=== PATIENT | male | born 1955 | race Caucasian/White ===

== ENCOUNTER 2019-10-11 07:42 | Outpatient (CLI) | payer OTHER, SELFPAY ==
--- NOTE | 2019-10-11 | ECHO_ITS ---
Patient Info Name: Donavan Gutierrez Age: 64 years : 1955 Gender: Male Ht: 71 in Wt: 197 lbs BSA: 2.13 m2 HR: 56 bpm BP: 151 / 89 mmHg Heart Rhythm: Bradycardia Technical Quality: Good Exam Date: 10/11/2019 8:15 AM Exam Location: [facility] Patient Status: Outpatient Admit Date: 10/11/2019 Staff Ordering Physician: JaeMariano MD Back Gray Cloth Washer: Paty Gutiérrez RDCS Attending Provider: TerriMariano MD Exam Type: CA echo doppler color flow Study Info Indications R00.2 - Palpitations Complete two-dimensional, color flow and Doppler transthoracic echocardiogram is performed. History/Risk Factors Palpitations. Summary 1. Normal LV size and wall thickness, normal LV systolic and diastolic function. LVEF about 65%. Trivial MR, no hemodynamically significant aortic stenosis. Trivial TR, RVSP 26 mmHg. Left Ventricle Left ventricular chamber dimension is normal. Left ventricular systolic function is normal, estimated at 60-65%. There is no increased left ventricular wall thickness. Left ventricular septal wall motion is normal. The left ventricular diastolic function is normal. Right Ventricle Right ventricular chamber dimension is normal. Right ventricular systolic function is normal. Left Atria Left atrial chamber dimension is normal. Right Atria Right atrial chamber dimension is normal. Aortic Valve The aortic valve is trileaflet. There is no aortic valve sclerosis. There is no aortic valve stenosis. There is no aortic valve regurgitation. Pulmonic Valve The pulmonic valve is not well visualized. There is no pulmonic regurgitation. Mitral Valve The mitral valve has normal leaflets. There is no mitral valve stenosis. There is trace mitral valve regurgitation. Tricuspid Valve There is no significant tricuspid valve stenosis. There is trace tricuspid valve regurgitation. No pulmonary hypertension, estimated pulmonary arterial systolic pressure is 26 mmHg. Pericardium/Pleural The pericardium appears epicardial fat pad. There is no pericardial effusion. Aorta The aortic root size at the sinus of Valsalva is normal. The prox ascending aorta size is normal. Left Ventricular Outflow Tract Name Value Normal LVOT 2D LVOT Diameter 2.0 cm LVOT Doppler LVOT Peak Gradient 5 mmHg LVOT Mean Gradient 2 mmHg LVOT VTI 25 cm LVOT VTI/AV VTI Ratio 0.9 LVOT Stroke Volume 77 ml LVOT CO 3.9 l/min LVOT CI 1.8 l/min/m2 Pulmonic Valve Name Value Normal RVOT Doppler RVOT Peak Gradient 2 mmHg RVOT Mean Gradient 1 mmHg PV Doppler
== END 2019-10-11 07:43 | disposition home or self-care (01) ==
PROVIDERS: PCP Internal Medicine; Visit Provider Internal Medicine
DX: R00.2 Palpitations (principal)
CPT/HCPCS: 93306